=== PATIENT | female | born 1975 | race Two or more races ===

== ENCOUNTER 2022-07-07 18:10 | Emergency (ER) | payer OTHER ==
[2022-07-07 18:34] VITALS: BP 120/78; PULSE 83; RESP 18; TEMP 98.2; BMI 25.0
[2022-07-07] MEDS ORDERED: IBUPROFEN 600 MG TABLET (FP) PO ONE ×2 (19:14→19:18)
== END 2022-07-07 20:58 | disposition home or self-care (01) ==
LOC: JERFT 18:10
DX: S59.902A Unspecified injury of left elbow, initial encounter (principal); W01.0XXA Fall on same level from slipping, tripping and stumbling without subsequent striking against object, initial encounter
CPT/HCPCS: 73070-TC-LT-FY; 99283-25

== ENCOUNTER 2022-09-09 21:13 | Emergency (ER) | payer OTHER ==
[2022-09-09 21:17] VITALS: BP 127/72; PULSE 98; RESP 18; TEMP 98; BMI 27.1
[2022-09-09 22:54] LABS: BASO % 0.9 % (0-2.0); EOS % 3.9 % (0-4.5); HEMATOCRIT 28.3 % (32.4-45.2); HEMOGLOBIN 8.9 GM/dL (10.7-15.3); LYMPH % 42.8 % (8-40); MCH 23.4 pg (25.7-33.7); MCHC 31.3 g/dl (32.0-36.0); MEAN CELL VOLUME 74.7 fl (80-96); MEAN PLT VOLUME 7.3 fl (7.5-11.1); MONO % 9.5 % (3.8-10.2); NEUT % 42.9 % (42.8-82.8); PLATELET COUNT 421 10^3/uL (134-434); RBC 3.79 M/mm3 (3.60-5.2); RDW 19.2 % (11.6-15.6); WHITE BLOOD COUNT 9.7 K/mm3 (4.0-10.0)
[2022-09-09 23:00] LABS: INR 1.04 (0.83-1.09); PROTHROMBIN TIME (PATIENT) 12.1 SEC (9.7-13.0)
[2022-09-09 23:03] LABS: ACTIVATED PTT 29.5 SECONDS (25.2-36.5)
[2022-09-09 23:57] LABS: CALCIUM 9.2 mg/dL (8.5-10.1)
[2022-09-09 23:58] LABS: ALBUMIN 3.5 g/dl (3.4-5.0); BLOOD UREA NITROGEN 11.5 mg/dL (7-18)
[2022-09-10] LABS: CREATININE 0.7 mg/dL (0.55-1.3)
[2022-09-10 00:03] LABS: BILIRUBIN,TOTAL 0.2 mg/dL (0.2-1); TOT PROT 7.4 g/dl (6.4-8.2)
== END 2022-09-10 00:43 | disposition home or self-care (01) ==
LOC: JER 21:13
DX: R00.2 Palpitations (principal)
CPT/HCPCS: 36415; 71046-TC-FY; 80053; 84436; 84443; 84479; 84484; 84703; 85025; 85610; 85730; 86850; 86900; 86901; 93005; 93010; 99285-25